=== PATIENT | female | born 1990 | race Caucasian/White ===

== ENCOUNTER 2017-11-22 19:27 | Emergency (ER) | END 2017-11-23 00:08 | disposition home or self-care (01) ==

== ENCOUNTER 2017-11-27 00:43 | Emergency (ER) | END 2017-11-27 01:30 | disposition left against medical advice (07) ==

== ENCOUNTER 2017-11-27 05:56 | Emergency (ER) | END 2017-11-27 10:48 | disposition home or self-care (01) ==

== ENCOUNTER 2017-11-28 04:57 | Emergency (ER) | END 2017-11-28 08:57 | disposition home or self-care (01) ==